=== PATIENT | male | born 1995 | race Caucasian/White ===

== ENCOUNTER 2021-03-30 15:19 | Emergency (ER) | payer OTHER, SELFPAY ==
[2021-03-30 15:28] VITALS: BP 148/79; PULSE 103; RESP 16; TEMP 37.1; O2SAT 100; BMI 27.1
== END 2021-03-30 18:28 | disposition left against medical advice (07) ==
PROVIDERS: Emergency Provider Emergency Medicine
DX: Z53.21 Procedure and treatment not carried out due to patient leaving prior to being seen by health care provider (principal)
CPT/HCPCS: 99281